=== PATIENT | female | born 1995 | race Caucasian/White ===

== ENCOUNTER → 2020-06-25 | Outpatient (CLI) | payer OTHER | LOC: LAB 14:19 | DX: L29.9 Pruritus, unspecified (principal) | CPT/HCPCS: 36415; 80076; 82239 ==

== ENCOUNTER 2020-10-14 09:25 | Emergency (ER) | payer OTHER | END 2020-10-14 11:15 | disposition left against medical advice (07) | LOC: ER1 09:25 | DX: Z53.21 Procedure and treatment not carried out due to patient leaving prior to being seen by health care provider (principal) ==